=== PATIENT | female | born 1985 | race Caucasian/White ===

== ENCOUNTER 2017-09-17 19:11 | Emergency (ER) | payer BC ==
[~2017-09-17] VITALS: Ht 162.6 cm; Wt 74.8 kg
[2017-09-17 19:11] VITALS: BP_SYST 123
[2017-09-17 23:00] LABS: BASOPHILS % (AUTO) 0.6 % (0.0-2.0); EOSINOPHILS # (AUTO) 0.1 K/uL (0.0-0.4); HEMATOCRIT 30.3 % (36-48); HEMOGLOBIN 9.8 g/dL (12.0-16.0); LYMPHOCYTES # (AUTO) 1.6 K/uL (1.0-5.5); LYMPHOCYTES % (AUTO) 22.8 % (20.5-51.5); MEAN CORPUSCULAR HEMOGLOBIN 25 pg (27-31); MEAN CORPUSCULAR HGB CONC 33 % (32-36); MEAN CORPUSCULAR VOLUME 77 fL (79.0-98.0); MONOCYTES # (AUTO) 0.6 K/uL (0.0-1.0); MONOCYTES % (AUTO) 7.9 % (1.7-9.3); NEUTROPHILS # (AUTO) 4.9 K/uL (1.8-7.7); NEUTROPHILS % (AUTO) 67.7 % (40.0-70.0); PLATELET COUNT (AUTO) 371 K/uL (130-430); RED BLOOD CELL COUNT(AUTO) 3.93 MIL/uL (4.2-6.2); RED CELL DISTRIBUTION WIDTH 16.4 % (9.0-15.0); WHITE BLOOD COUNT (AUTO) 7.2 K/uL (4.8-10.8)
[2017-09-17 23:06] LABS: CALCIUM 9.9 mg/dL (8.4-11.0); CREATININE 0.47 mg/dL (0.55-1.30); POTASSIUM 3.6 mmol/L (3.5-5.1)
[2017-09-17 23:10] LABS: ALBUMIN 2.9 g/dL (3.4-4.8); TOTAL BILIRUBIN 0.3 mg/dL (0.0-1.0)
[2017-09-17 23:28] LABS: INR 0.9 (0.8-1.2); PROTHROMBIN TIME 8.9 SECS (9.5-12.5)
[2017-09-18 00:03] VITALS: BP_SYST 120
== END 2017-09-18 00:03 | disposition home or self-care (01) ==
LOC: SED 19:11
DX: O26.892 Other specified pregnancy related conditions, second trimester (principal); R25.2 Cramp and spasm; R21 Rash and other nonspecific skin eruption; Z3A.22 22 weeks gestation of pregnancy
CPT/HCPCS: 36415; 76810; 80053; 85025; 85610-TC; 85730-TC; 93970; 99285

== ENCOUNTER 2017-10-07 20:18 | Observation (INO) | payer BC ==
[~2017-10-07] VITALS: Ht 162.6 cm; Wt 78.5 kg
[2017-10-07] MEDS ORDERED: TEMAZEPAM 7.5 MG CAPSULE PO PRN (21:45)
[2017-10-07] MEDS ORDERED: DIPHENHYDRAMINE HCL 50 MG CAPSULE PO PRN (21:45)
[2017-10-07] MEDS ORDERED: BETAMET ACET/BETAMET NA PH 30 MG/5 ML VIAL IM ONE (21:45)
[2017-10-07 22:13] LABS: BASOPHILS % (AUTO) 0.5 % (0.0-2.0); EOSINOPHILS # (AUTO) 0.2 K/uL (0.0-0.4); EOSINOPHILS % (AUTO) 3.1 % (0.0-4.0); HEMATOCRIT 25.9 % (36-48); LYMPHOCYTES # (AUTO) 1.4 K/uL (1.0-5.5); LYMPHOCYTES % (AUTO) 24.9 % (20.5-51.5); MEAN CORPUSCULAR HEMOGLOBIN 23 pg (27-31); MEAN CORPUSCULAR HGB CONC 31 % (32-36); MEAN CORPUSCULAR VOLUME 75 fL (79.0-98.0); MONOCYTES # (AUTO) 0.6 K/uL (0.0-1.0); MONOCYTES % (AUTO) 10.8 % (1.7-9.3); NEUTROPHILS # (AUTO) 3.5 K/uL (1.8-7.7); NEUTROPHILS % (AUTO) 60.7 % (40.0-70.0); PLATELET COUNT (AUTO) 381 K/uL (130-430); RED BLOOD CELL COUNT(AUTO) 3.44 MIL/uL (4.2-6.2); WHITE BLOOD COUNT (AUTO) 5.7 K/uL (4.8-10.8)
[2017-10-07 22:19] LABS: CALCIUM 8.5 mg/dL (8.4-11.0); CREATININE 0.65 mg/dL (0.55-1.30); POTASSIUM 3.3 mmol/L (3.5-5.1)
[2017-10-07 22:22] LABS: ALBUMIN 2.3 g/dL (3.4-4.8); BILIRUBIN,DIRECT 0.1 mg/dL (0.0-0.3); TOTAL BILIRUBIN 0.2 mg/dL (0.0-1.0)
[2017-10-07 23:58] VITALS: BP_SYST 130
[2017-10-08] MEDS ORDERED: TERBUTALINE SULFATE 1 MG/ML VIAL ONE (02:29)
[2017-10-08] MEDS ORDERED: DIPHENHYDRAMINE HCL 50 MG CAPSULE PO ONE (02:30)
[2017-10-08] MEDS ORDERED: TERBUTALINE SULFATE 1 MG/ML VIAL SUBCUT PRN (02:30)
[2017-10-08] MEDS ORDERED: BETAMET ACET/BETAMET NA PH 30 MG/5 ML VIAL IM ONE (14:45)
[2017-10-08] MEDS ORDERED: TEMAZEPAM 15 MG CAPSULE PO PRN (21:00)
== END 2017-10-08 15:15 | disposition home or self-care (01) ==
LOC: SED 20:18 → SPU 20:50 → SED 20:58 → SPU 20:58
PROVIDERS: ADMIT Specialist; ATTEND Specialist
DX: O99.712 Diseases of the skin and subcutaneous tissue complicating pregnancy, second trimester (principal); L50.9 Urticaria, unspecified; O26.892 Other specified pregnancy related conditions, second trimester; R51 Headache; Z3A.25 25 weeks gestation of pregnancy
CPT/HCPCS: 36415; 59025; 80053; 81002; 82239; 82248; 84550; 85025; 85384; 96372 ×2; 99281; G0378 ×2; J0702 ×2; J3105; Q0163 ×2

== ENCOUNTER 2017-11-01 23:00 | Observation (INO) | payer BC ==
[~2017-11-01] VITALS: Ht 162.6 cm; Wt 78.5 kg
[2017-11-01] MEDS: D5/0.45 NS 1,000 ML IV SCH (23:45)
[2017-11-02 00:34] LABS: BILIRUBIN,URINE 1+ (NEGATIVE); BLOOD, URINE NEGATIVE (NEGATIVE); CLARITY/URINE SL CLOUDY (CLEAR); COLOR,URINE YELLOW (YELLOW); GLUCOSE,URINE TRACE (NEGATIVE); KETONES,URINE 1+ (NEGATIVE); LEUKOCYTE ESTERASE ,URINE 2+ (NEGATIVE); NITRITE, URINE POSITIVE (NEGATIVE); PH,URINE 5.5 (5.0-8.0); PROTEIN URINE 1+ (NEGATIVE)
[2017-11-02] MEDS: ONDANSETRON HCL 4 MG/2 ML VIAL IVP PRN (00:36)
[2017-11-02 00:42] LABS: HEMATOCRIT 24.6 % (36-48); HEMOGLOBIN 7.7 g/dL (12.0-16.0); MEAN CORPUSCULAR HGB CONC 31 % (32-36); MEAN CORPUSCULAR VOLUME 72 fL (79.0-98.0); PLATELET COUNT (AUTO) 345 K/uL (130-430); RED CELL DISTRIBUTION WIDTH 16.9 % (9.0-15.0)
[2017-11-02 00:48] LABS: BACTERIA,URINE MODERATE /HPF (None Seen); RBC,URINE 0-3 /HPF (0-3)
[2017-11-02 00:50] LABS: CALCIUM 8.6 mg/dL (8.4-11.0); CREATININE 0.58 mg/dL (0.55-1.30); POTASSIUM 3.7 mmol/L (3.5-5.1)
[2017-11-02 00:53] LABS: MEAN CORPUSCULAR HEMOGLOBIN 23 pg (27-31); RED BLOOD CELL COUNT(AUTO) 3.39 MIL/uL (4.2-6.2); WHITE BLOOD COUNT (AUTO) 6.4 K/uL (4.8-10.8)
[2017-11-02 00:56] LABS: ALBUMIN 2.4 g/dL (3.4-4.8); TOTAL BILIRUBIN 0.6 mg/dL (0.0-1.0)
[2017-11-02] MEDS ORDERED: CEFAZOLIN 1 GM IVPB PREMIX 50 ML IV ONE ×2 (01:11)
[2017-11-02] MEDS: D5/0.45 NS 1,000 ML IV SCH ×3 (04:27→23:34)
[2017-11-02] MEDS: ceFAZolin SODIUM 1 GM in D5W 50 ML IV SCH ×3 (06:00→23:32)
[2017-11-02] MEDS ORDERED: ceFAZolin SODIUM 1 GM VIAL ONE ×3 (11:11→23:21)
[2017-11-02 13:41] LABS: EOSINOPHILS % (MANUAL) 1 % (0-7); LYMPHOCYTES % (MANUAL) 18 % (20-46); MONOCYTES % (MANUAL) 7 % (0-11)
[2017-11-02 13:42] LABS: BASOPHILS % (MANUAL) 0 % (0-2)
[2017-11-02 14:48] LABS: LYMPHOCYTES % (MANUAL) 18 % (20-46)
[2017-11-02 14:49] LABS: BASOPHILS % (MANUAL) 0 % (0-2); EOSINOPHILS % (MANUAL) 1 % (0-7); MONOCYTES % (MANUAL) 7 % (0-11)
[2017-11-02 15:13] LABS: INR 0.9 (0.8-1.2); PROTHROMBIN TIME 8.7 SECS (9.5-12.5)
[2017-11-03] MEDS: D5/0.45 NS 1,000 ML IV SCH ×2 (02:40→18:46)
[2017-11-03 05:36] LABS: ALBUMIN 1.9 g/dL (3.4-4.8); BILIRUBIN,DIRECT 0.2 mg/dL (0.0-0.3); TOTAL BILIRUBIN 0.5 mg/dL (0.0-1.0)
[2017-11-03] MEDS ORDERED: ceFAZolin SODIUM 1 GM VIAL ONE ×3 (05:45→23:00)
[2017-11-03] MEDS: ceFAZolin SODIUM 1 GM in D5W 50 ML IV SCH ×3 (05:48→23:50)
[2017-11-03] MEDS: ONDANSETRON HCL 4 MG/2 ML VIAL IVP PRN (09:42)
[2017-11-03] MEDS ORDERED: PANTOPRAZOLE SODIUM 40 MG TAB PO ONE (11:00)
[2017-11-03] MEDS ORDERED: DIPHENHYDRAMINE INJ 50 MG/ML VIAL ONE (15:34)
[2017-11-03] MEDS ORDERED: DIPHENHYDRAMINE INJ 50 MG/ML VIAL IM ONE (15:45)
[2017-11-04] MEDS: D5/0.45 NS 1,000 ML IV SCH ×2 (02:45→12:12)
[2017-11-04] MEDS: ceFAZolin SODIUM 1 GM in D5W 50 ML IV SCH (06:00)
[2017-11-04] MEDS ORDERED: ceFAZolin SODIUM 1 GM VIAL ONE ×2 (06:01→12:07)
[2017-11-04 06:21] LABS: ALBUMIN 1.9 g/dL (3.4-4.8); BILIRUBIN,DIRECT 0.2 mg/dL (0.0-0.3); TOTAL BILIRUBIN 0.4 mg/dL (0.0-1.0)
[2017-11-04] MEDS: DIPHENHYDRAMINE INJ 50 MG/ML VIAL IM PRN ×2 (08:55→12:58)
[2017-11-04] MEDS ORDERED: PANTOPRAZOLE SODIUM 40 MG TAB PO SCH (09:00)
== END 2017-11-04 16:52 | disposition home or self-care (01) ==
LOC: SPU 23:00
PROVIDERS: ADMIT Specialist; ATTEND Specialist
DX: O21.2 Late vomiting of pregnancy (principal); O30.003 Twin pregnancy, unspecified number of placenta and unspecified number of amniotic sacs, third trimester; O26.893 Other specified pregnancy related conditions, third trimester; R94.5 Abnormal results of liver function studies; Z3A.29 29 weeks gestation of pregnancy
CPT/HCPCS: 36415; 59025; 76700-TC; 80053; 80076; 81000-TC; 82150-TC; 82239; 83010; 83690-TC; 85007; 85027; 85610-TC; 87086; 87186-TC; 96361; 96365; 96372; G0378; J0690; J1200; J2405; J7060